=== PATIENT | male | born 1955 | race Caucasian/White ===

== ENCOUNTER → 2019-06-17 | Outpatient (REF) | payer MEDICARE, MEDICAID ==
[~2019-06-17] MED LIST: ASPI81TA26 PO; ATEN50TA2 PO; ATOR40TA75 PO; AZEL0.1S3; FLUT1LOT; GABA-843 PO; HYDR-3713 PO; LISI10TA4 PO; MONT10TA2 PO; NEXI40CA PO; PROAAER10 INH
== END ==
LOC: M LAB REF 12:48
PROVIDERS: ATTEND Nurse Practitioner Adult Health
DX: R53.83 Other fatigue (principal)

== ENCOUNTER 2024-07-15 08:17 | Day surgery (SDC) | payer MEDICARE, MEDICAID ==
[~2024-07-15] VITALS: Ht 185.4 cm; Wt 113.8 kg
[~2024-07-15 08:17] MED LIST changes: +ATOR80TA59 PO; +AZEL1SPR3; +EZET10TA21 PO; +FLUTISP; +GABA-282 PO; -GABA-843 PO; +LISI10TA22 PO; -LISI10TA4 PO; +LR 1,000 ML IV SCH; +METO1TAB32 PO; +MIDAZOLAM INJ 2MG/2ML VIAL As Ordered ONE; -MONT10TA2 PO; +MONT10TA97 PO; +PROA1AER2 IN; +fentaNYL 100 MCG/2 ML INJECTION As Ordered ONE
[2024-07-15] MEDS: PHENYLEPHRINE 2.5% OPHTH SOL 2ML OS SCH (08:58)
[2024-07-15] MEDS: TETRACAINE 0.5% OPHTH SOLN 4ML OS SCH (08:58)
[2024-07-15] MEDS: ATROPINE SULFATE 1% OPHTH SOLN 2ML BTL OS SCH (08:58)
[2024-07-15] MEDS: FLURBIPROFEN 0.03% OPHTH SOLN 2.5 ML OS SCH (08:58)
[2024-07-15] MEDS: LIDOCAINE 1% SDV 5ML VIAL As Ordered ONE (10:30)
[2024-07-15] MEDS: MOXIFLOXACIN 0.6MG/0.4ML INTRAOCULAR SYRINGE As Ordered ONE (10:31)
== END 2024-07-15 11:13 | disposition home or self-care (01) ==
LOC: M SDC 08:17
PROVIDERS: ATTEND Ophthalmology
DX: H25.12 Age-related nuclear cataract, left eye (principal); I25.10 Atherosclerotic heart disease of native coronary artery without angina pectoris; I10 Essential (primary) hypertension; I25.2 Old myocardial infarction; J45.909 Unspecified asthma, uncomplicated; E78.00 Pure hypercholesterolemia, unspecified; Z79.899 Other long term (current) drug therapy; Z79.82 Long term (current) use of aspirin; Z95.5 Presence of coronary angioplasty implant and graft; K21.9 Gastro-esophageal reflux disease without esophagitis; Z88.0 Allergy status to penicillin; Z90.49 Acquired absence of other specified parts of digestive tract
CPT/HCPCS: 66984; J2250; J3010; V2632

== ENCOUNTER 2024-08-26 11:16 | Day surgery (SDC) | payer MEDICARE, MEDICAID ==
[~2024-08-26] VITALS: Ht 182.9 cm; Wt 112.0 kg
[~2024-08-26 11:16] MED LIST changes: +BRIM0.2S13 OS; +GABA-1172 PO; -GABA-282 PO; -LR 1,000 ML IV SCH; -MIDAZOLAM INJ 2MG/2ML VIAL As Ordered ONE; +NS 1,000 ML IV ONE; +OMEP40CA5 PO; -fentaNYL 100 MCG/2 ML INJECTION As Ordered ONE
[2024-08-26] MEDS ORDERED: LIDOCAINE 2% 100MG/5ML SDV (FOR ANES.) As Ordered ONE (11:53)
[2024-08-26] MEDS ORDERED: propofoL 200 MG/20 ML VIAL As Ordered ONE (11:53)
[2024-08-26 13:00] VITALS: BP 141/94; O2SAT 96
== END 2024-08-26 13:13 | disposition home or self-care (01) ==
LOC: M OPP 11:16
PROVIDERS: ATTEND Internal Medicine Gastroenterology
DX: Z12.11 Encounter for screening for malignant neoplasm of colon (principal); Z80.0 Family history of malignant neoplasm of digestive organs; Z86.0100 Personal history of colon polyps, unspecified; K64.0 First degree hemorrhoids; K57.30 Diverticulosis of large intestine without perforation or abscess without bleeding; K63.89 Other specified diseases of intestine; K29.50 Unspecified chronic gastritis without bleeding; K52.9 Noninfective gastroenteritis and colitis, unspecified; K22.89 Other specified disease of esophagus; K44.9 Diaphragmatic hernia without obstruction or gangrene; K31.89 Other diseases of stomach and duodenum

== ENCOUNTER 2024-09-09 11:09 | Day surgery (SDC) | payer MEDICARE, MEDICAID ==
[~2024-09-09] VITALS: Ht 182.9 cm; Wt 116.6 kg
[~2024-09-09 11:09] MED LIST changes: +LR 1,000 ML IV SCH; -NS 1,000 ML IV ONE; +SUCR1TAB56 PO
[2024-09-09] MEDS ORDERED: fentaNYL 100 MCG/2 ML INJECTION As Ordered ONE (13:38)
[2024-09-09] MEDS ORDERED: MIDAZOLAM INJ 2MG/2ML VIAL As Ordered ONE (13:38)
[2024-09-09] MEDS: FLURBIPROFEN 0.03% OPHTH SOLN 2.5 ML OD SCH (13:55)
[2024-09-09] MEDS: TETRACAINE 0.5% OPHTH SOLN 4ML OD SCH (13:55)
[2024-09-09] MEDS: PHENYLEPHRINE 2.5% OPHTH SOL 2ML OD SCH (13:55)
[2024-09-09] MEDS: ATROPINE SULFATE 1% OPHTH SOLN 2ML BTL OD SCH (13:55)
[2024-09-09] MEDS: MOXIFLOXACIN 0.6MG/0.4ML INTRAOCULAR SYRINGE As Ordered ONE (14:53)
[2024-09-09] MEDS: LIDOCAINE 1% SDV 5ML VIAL As Ordered ONE (14:53)
[2024-09-09] MEDS ORDERED: LABETALOL 100MG/20ML VIAL As Ordered ONE (14:55)
[2024-09-09 15:11] VITALS: BP 183/91; TEMP 98.6; O2SAT 96
== END 2024-09-09 15:26 | disposition home or self-care (01) ==
LOC: M SDC 11:09
PROVIDERS: ATTEND Ophthalmology
DX: H25.11 Age-related nuclear cataract, right eye (principal); I25.10 Atherosclerotic heart disease of native coronary artery without angina pectoris; I25.2 Old myocardial infarction; Z95.5 Presence of coronary angioplasty implant and graft; Z88.0 Allergy status to penicillin; Z79.899 Other long term (current) drug therapy; Z87.891 Personal history of nicotine dependence; Z98.42 Cataract extraction status, left eye
CPT/HCPCS: 66984; J1920; J2250; J3010; V2632

== ENCOUNTER 2025-11-02 04:55 | Inpatient (IN) | payer MEDICARE, MEDICAID ==
[2025-11-02] VITALS (7 sets, daily range): BP systolic 142–154; BP diastolic 77–100; TEMP 97.6–99.8; O2SAT 95–98
[~2025-11-02] VITALS: Ht 182.9 cm; Wt 108.3 kg
[~2025-11-02 04:55] MED LIST changes: -EZET10TA21 PO; +EZET10TA57 PO; -LR 1,000 ML IV SCH
[2025-11-02] MEDS: NS (Normal Saline) 0.9% 1,000 ML IV ONE (05:39)
[2025-11-02] MEDS: ACETAMINOPHEN *IV* 1,000 MG in IV 1 EA IV ONE (05:39)
[2025-11-02 05:44] LABS: BASO # 0.0 10^3/uL (0.0-0.2); BASO % 0.2 % (0.0-1.0); EOS # 0.0 10^3/uL (0.0-0.5); EOS % 0.0 % (0.0-3.0); LYMPH # 1.7 10^3/uL (1.5-5.0); LYMPH % 26.9 % (24.0-44.0); MONO # 0.8 10^3/uL (0.0-0.8); MONO % 13.4 % (2.0-8.0); NEUTROPHILS # 3.7 10^3/uL (1.5-8.5); NEUTROPHILS % 59.0 % (36.0-66.0); PLATELET COUNT, AUTOMATED 171 10^3/uL (150-450)
[2025-11-02 06:07] LABS: CPK CREATINE PHOSPHOKINASE 160 U/L (46-171)
[2025-11-02 06:08] LABS: ALT/SGPT 27 U/L (7.0-40); AST/SGOT 36 U/L (<34); CALCIUM LEVEL 8.2 MG/DL (8.3-10.6); CARBON DIOXIDE LEVEL 28 MMOL/L (20-31); CHLORIDE LEVEL 98 MMOL/L (98-107); CK-MB VALUE MASS < 1.0 NG/ML (<3.6); CREATININE FOR GFR 1.10 MG/DL (0.70-1.30); GLOMERULAR FILTRATION RATE 72.7 (>49); POTASSIUM SERUM 3.0 MMOL/L (3.5-5.1); SODIUM LEVEL 138 MMOL/L (136-145)
[2025-11-02 07:47] LABS: CK-MB VALUE MASS < 1.0 NG/ML (<3.6)
[2025-11-02 07:53] LABS: CPK CREATINE PHOSPHOKINASE 130 U/L (46-171)
[2025-11-02 07:53] LABS: HEPATITIS C VIRUS ABY INDEX 0.03 INDEX (<0.8)
[2025-11-02 08:01] LABS: CK-MB VALUE MASS < 1.0 NG/ML (<3.6)
[2025-11-02 08:03] LABS: CPK CREATINE PHOSPHOKINASE 131 U/L (46-171)
[2025-11-02] MEDS ORDERED: ALBU8.5H INH (08:03)
[2025-11-02] MEDS: POTASSIUM CHLORIDE 10MEQ SR TABLET PO ONE ×2 (08:14→18:42)
[2025-11-02] MEDS: NS (Normal Saline) 0.9% 1,000 ML IV SCH (08:14)
[2025-11-02] MEDS: ENOXAPARIN 40 MG/0.4 ML SYRINGE (J1650 PER 10MG) SC SCH (08:50)
[2025-11-02] MEDS: dexAMETHasone 4 MG/ML 1 ML VIAL IV SCH (08:50)
[2025-11-02] MEDS: guaiFENesin ER TABLET 600 MG TAB PO SCH (08:54)
[2025-11-02] MEDS: COMBIVENT RESPIMAT 100-20 MCG INHALER 4 GM INH SCH (09:24)
[2025-11-02] MEDS ORDERED: HOME MED LIST COMPLETE! XX SCH (09:30)
[2025-11-02] MEDS: REMDESIVIR 200 MG in NS 250 ML IV ONE (10:39)
[2025-11-02 11:01] LABS: MAGNESIUM LEVEL 2.2 MG/DL (1.8-2.4); POTASSIUM SERUM 2.9 MMOL/L (3.5-5.1)
[2025-11-02] MEDS: METOPROLOL TART 25 MG TABLET PO ONE (15:42)
[2025-11-02 15:54] LABS: CK-MB VALUE MASS < 1.0 NG/ML (<3.6)
[2025-11-02 15:55] LABS: CPK CREATINE PHOSPHOKINASE 148 U/L (46-171)
[2025-11-02] MEDS: CALCIUM GLUCONATE 1,000 MG in DEXTROSE 5% (D5W) MINI-BAG PLU 100 ML IV ONE (18:42)
[2025-11-02] MEDS: FLUTICASONE PROPIONATE 0.05% NASAL SPRAY 16 GM NARES SCH (22:29)
[2025-11-02] MEDS: ACETAMINOPHEN 325 MG TAB PO PRN (22:29)
[2025-11-02 23:21] LABS: CK-MB VALUE MASS 1.7 NG/ML (<3.6)
[2025-11-02 23:22] LABS: CPK CREATINE PHOSPHOKINASE 155.0 U/L (46-171); MB/CK RELATIVE INDEX 1.09 (< OR =4)
[2025-11-03 03:34] VITALS: BP 144/76; TEMP 97; O2SAT 97
[2025-11-03 03:59] LABS: CK-MB VALUE MASS 1.7 NG/ML (<3.6)
[2025-11-03 04:00] LABS: CPK CREATINE PHOSPHOKINASE 156.0 U/L (46-171); MB/CK RELATIVE INDEX 1.08 (< OR =4)
[2025-11-03 08:01] LABS: ALT/SGPT 21 U/L (7.0-40); AST/SGOT 26 U/L (<34); CALCIUM LEVEL 7.7 MG/DL (8.3-10.6); CARBON DIOXIDE LEVEL 25 MMOL/L (20-31); CHLORIDE LEVEL 106 MMOL/L (98-107); CREATININE FOR GFR 0.87 MG/DL (0.70-1.30); GLOMERULAR FILTRATION RATE > 90.0 (>49); MAGNESIUM LEVEL 2.1 MG/DL (1.8-2.4); POTASSIUM SERUM 3.0 MMOL/L (3.5-5.1); SODIUM LEVEL 140 MMOL/L (136-145)
[2025-11-03 08:04] LABS: BASO # 0.0 10^3/uL (0.0-0.2); BASO % 0.3 % (0.0-1.0); EOS # 0.0 10^3/uL (0.0-0.5); EOS % 0.1 % (0.0-3.0); LYMPH # 2.6 10^3/uL (1.5-5.0); LYMPH % 33.8 % (24.0-44.0); MONO # 0.6 10^3/uL (0.0-0.8); MONO % 7.8 % (2.0-8.0); NEUTROPHILS # 4.4 10^3/uL (1.5-8.5); NEUTROPHILS % 57.7 % (36.0-66.0); PLATELET COUNT, AUTOMATED 144 10^3/uL (150-450)
[2025-11-03] MEDS: POTASSIUM CHLORIDE 10MEQ SR TABLET PO SCH (08:43)
[2025-11-03] MEDS: DOXYCYCLINE HYCLATE 100 MG TABLET PO SCH (08:43)
[2025-11-03] MEDS: cefTRIAXone SOD 2 GM in DEXTROSE 5% (D5W) ADV/MINI-BAG 50 ML IV SCH (08:44)
[2025-11-03] MEDS ORDERED: POTASSIUM CHLORIDE 10MEQ SR TABLET PO SCH (09:00)
[2025-11-03 12:00] VITALS: BP 149/83; TEMP 98.7; O2SAT 90
[2025-11-03 14:54] LABS: MAGNESIUM LEVEL 2.0 MG/DL (1.8-2.4); POTASSIUM SERUM 4.0 MMOL/L (3.5-5.1)
[2025-11-03 15:30] VITALS: TEMP 96.9
[2025-11-03] MEDS: POTASSIUM CHLORIDE 10MEQ SR TABLET PO ONE (16:24)
[2025-11-03] MEDS: CALCIUM GLUCONATE 1,000 MG in DEXTROSE 5% (D5W) MINI-BAG PLU 100 ML IV ONE (16:25)
[2025-11-03] MEDS: MAG SULF 1GM/100ML (MAG RUN) 1 GM in IV 1 EA IV ONE (16:25)
[2025-11-03 20:28] VITALS: BP 161/86; TEMP 97.4; O2SAT 93
[2025-11-03] MEDS: traZODone 50 MG TAB PO PRN (20:53)
[2025-11-04 05:58] VITALS: BP 163/83; TEMP 97.6; O2SAT 94
[2025-11-04 06:22] LABS: BASO # 0.0 10^3/uL (0.0-0.2); BASO % 0.1 % (0.0-1.0); EOS # 0.0 10^3/uL (0.0-0.5); EOS % 0.0 % (0.0-3.0); LYMPH # 2.8 10^3/uL (1.5-5.0); LYMPH % 41.0 % (24.0-44.0); MONO # 0.5 10^3/uL (0.0-0.8); MONO % 6.8 % (2.0-8.0); NEUTROPHILS # 3.5 10^3/uL (1.5-8.5); NEUTROPHILS % 51.8 % (36.0-66.0); PLATELET COUNT, AUTOMATED 168 10^3/uL (150-450)
[2025-11-04 06:49] LABS: ALT/SGPT 23 U/L (7.0-40); AST/SGOT 27 U/L (<34); CALCIUM LEVEL 8.0 MG/DL (8.3-10.6); CARBON DIOXIDE LEVEL 24 MMOL/L (20-31); CHLORIDE LEVEL 107 MMOL/L (98-107); CREATININE FOR GFR 0.92 MG/DL (0.70-1.30); GLOMERULAR FILTRATION RATE > 90.0 (>49); MAGNESIUM LEVEL 2.1 MG/DL (1.8-2.4); POTASSIUM SERUM 3.3 MMOL/L (3.5-5.1); SODIUM LEVEL 141 MMOL/L (136-145)
[2025-11-04] MEDS: POTASSIUM CHLORIDE 10MEQ SR TABLET PO SCH (08:18)
[2025-11-04] MEDS ORDERED: POTASSIUM CHLORIDE 10MEQ SR TABLET PO ONE (08:25)
[2025-11-04] MEDS: ONDANSETRON 4MG/2ML VIAL IV PRN (08:28)
[2025-11-04] MEDS ORDERED: MUCI1LIQ3 PO (08:41)
[2025-11-04] MEDS ORDERED: CEFP200T PO (08:41)
[2025-11-04] MEDS ORDERED: GI COCKTAIL 50 ML BTL(HYOSCYAMINE/MAALOX/LIDOCAINE VISCOUS)(1:3:1) PO ONE (08:45)
== END 2025-11-04 12:18 | disposition home or self-care (01) | DRG 179 ==
LOC: M ED 04:55 → M ED INP 06:49 → M MS5PR 08:35 → M MSPAV 15:48
PROVIDERS: ADMIT General Practice; ATTEND Internal Medicine
PROC: 3E0333Z Introduction of Anti-inflammatory into Peripheral Vein, Percutaneous Approach (ICD-10-PCS; principal; 2025-11-02)
PROC: XW033E5 Introduction of Remdesivir Anti-infective into Peripheral Vein, Percutaneous Approach, New Technology Group 5 (ICD-10-PCS; 2025-11-02)
PROC: B246ZZZ Ultrasonography of Right and Left Heart (ICD-10-PCS; 2025-11-03)
DX: U07.1 COVID-19 (principal); J15.69 Pneumonia due to other Gram-negative bacteria; N18.32 Chronic kidney disease, stage 3b; I12.9 Hypertensive chronic kidney disease with stage 1 through stage 4 chronic kidney disease, or unspecified chronic kidney disease; K22.70 Barrett's esophagus without dysplasia; I25.10 Atherosclerotic heart disease of native coronary artery without angina pectoris; Z95.5 Presence of coronary angioplasty implant and graft; J45.20 Mild intermittent asthma, uncomplicated; R62.7 Adult failure to thrive; E78.5 Hyperlipidemia, unspecified; K21.9 Gastro-esophageal reflux disease without esophagitis; Z87.891 Personal history of nicotine dependence; M54.9 Dorsalgia, unspecified; G89.29 Other chronic pain; E88.810 Metabolic syndrome; H40.9 Unspecified glaucoma; Z90.49 Acquired absence of other specified parts of digestive tract; E87.6 Hypokalemia; E83.51 Hypocalcemia; R74.01 Elevation of levels of liver transaminase levels; E66.9 Obesity, unspecified; Z68.32 Body mass index [BMI] 32.0-32.9, adult; Z79.82 Long term (current) use of aspirin; Z79.899 Other long term (current) drug therapy; Z88.0 Allergy status to penicillin; R00.0 Tachycardia, unspecified; I25.2 Old myocardial infarction